=== PATIENT | female | born 1940 | race Caucasian/White ===

== ENCOUNTER → 2016-06-19 | Outpatient (CLI) | payer OTHER, BC ==
[~2016-06-19] MED LIST: ADULT LOW DOSE81 MG PO; APAP500 PO; CALCIUM AND MA1 EACH PO; CLARITIN10 MG PO; ECHINACEA500 MG PO; FISH OIL 1,0001 EAC5 PO; GLUCOSAMINE &1 EACH PO; LUTEIN20 MG PO; NORCO 5-325 TA1 EACH PO; QVAR HFA 440 MCG/UN1 INH; TRAMADOL 50 MG50 MG PO; TYLENOL ALLERG PO; VENTOLIN HFA 1818 GM INH; VICODIN; VICODIN 5-5001 EACH PO; VITAMIN B-12500 MCG PO; VITAMIN C100 M1 PO; VITAMIN D-32000 UNIT PO; VITAMIN E 400I400 IU PO; VITAMIN E400 UNIT PO; VITAMINC500 PO; Vitamin B-6 PO; [UNRECOGNIZED DRUG - OTHER] PO; [UNRECOGNIZED DRUG - OTHER] PO
== END ==
LOC: RAD 15:36
DX: Z12.31 Encounter for screening mammogram for malignant neoplasm of breast (principal)

== ENCOUNTER → 2017-06-06 | Outpatient (CLI) | payer OTHER, BC ==
[~2017-06-06] VITALS: Ht 170.2 cm; Wt 86.2 kg
[~2017-06-06] MED LIST changes: +CELECOXIB200 MG PO; +HYDROCODON-ACE1 EAC5 PO; +KRILL OIL 1,001 EAC1 PO; +LIPITOR10 MG PO
--- NOTE | ~2017-06-06 | HPC ---
[facility] [place] [address] PAIN MANAGEMENT CONSULTATION Name: BRADLY GARIBAY [facility] [id number] Admission: 06/06/17 Attend Phys: Rico Gracia MD Discharge: Date of : 36 Report #: [id number] THIS REPORT FOR: //name// CC: Argenis Gracia DATE OF SERVICE: 06/06/2017 Followup visit for lumbar radiculopathy. HISTORY OF PRESENT ILLNESS: The patient returns to pain clinic, would like another epidural injection. Her last injection was performed in 01/10/2017. She reports several months of significant improvement in pain relief. Pain is mostly related to the L4-L5 distribution. We reviewed her MRIs. In addition to the epidural injection, she is provided with hydrocodone 10/325 1 tablet q. 6 hours for a total of 30 morphine milligram equivalents a day. She has found this to be helpful without side effect. She safeguards all medication. She is on regular dosing, has had no red flag behaviors. Urine drug analysis or buccal drug screening p.r.n. will be performed as needed. We talked about continuing on Celebrex I have agreed to renew that medication as well 1 tablet daily. PHYSICAL EXAMINATION: Pleasant, alert and oriented, without signs of overmedication. Blood pressure is 143/71, heart rate 75. She has tenderness across her low back. She has positive straight leg raising bilaterally. Pain score is 3 today. Gait is ambulatory without antalgic features. BMI is 29.8. IMPRESSION: Lumbar radiculopathy. PROCEDURE: Lumbar epidural injection under fluoroscopic guidance. DESCRIPTION OF PROCEDURE: She was taken to fluoroscopic suite, placed prone, skin prepped with ChloraPrep. Skin anesthetized over the L4-L5 interspace. A 20-gauge Tuohy epidural needle advanced in the epidural space with loss of resistance technique. There was no blood or CSF aspirated. 1 mL of Omnipaque was injected with good spread of dye observed into the epidural space. This was followed by 3 mL of 0.5% lidocaine mixed with 80 mg triamcinolone. She tolerated the procedure well and was observed for 45 minutes and discharged with a followup visit planned as needed. <ELECTRONICALLY SIGNED> By: Rico Gracia MD 07/31/17 1640 [id number] Rico Gracia MD /nt
[2017-06-06 10:43] VITALS: BP 143/74
== END | disposition home or self-care (01) ==
LOC: PAIN 07:08
DX: M54.16 Radiculopathy, lumbar region (principal); G89.29 Other chronic pain; Z88.0 Allergy status to penicillin; Z79.891 Long term (current) use of opiate analgesic; Z79.82 Long term (current) use of aspirin; Z98.890 Other specified postprocedural states

== ENCOUNTER → 2017-09-12 | Outpatient (CLI) | payer OTHER, BC ==
[~2017-09-12] VITALS: Ht 152.4 cm; Wt 87.3 kg
--- NOTE | ~2017-09-12 | HPC ---
[facility] [place] [address] PAIN MANAGEMENT CONSULTATION Name: BRADLY GARIBAY Room #: REG ALONSO Octavia.#: [id number] Admission: 09/12/17 Attend Phys: Rico Gracia MD Discharge: Date of : 38 Report #: [id number] THIS REPORT FOR: //name// CC: Argenis Gracia DATE OF SERVICE: 09/12/2017 Followup visit for lumbar radiculopathy. The patient returns to the pain clinic today for repeat injection. Her last injection was in June. She has significant ongoing pain following the L4-L5 distribution of the left leg. We have talked about additional options for treatment in the future. For the moment, no new x-rays will be performed. We will continue to provide injections as long she can see months of relief. She is not taking opioid medications and does continue to remain active in her exercise and activities of daily living hoping to keep pain at bay. She completed a functional score today of 51/70. She is affected by walking ability mostly and she scores her interference of pain with enjoyment of life at 10/10. She has also completed for us an opioid risk tool. I have agreed to continue providing her with hydrocodone 10/325 up to 3 times a day. This is a morphine milligram equivalency of 30 MME. She will also take Celebrex 1 tablet daily as tolerated for benefit. Physical examination shows the patient who is 5 feet 2 inches, 152 pounds with a BMI of 37.6. Weight loss strategies have been discussed. Her blood pressure is 142/83, heart rate 66 and respirations 16. Pain intensity is 8/10. She is not a fall risk. She is not under treatment for hypertension. Opioid contract was reviewed with her. Examination of the spine reveals tenderness across the low back. She has some pain with forward flexion and extension. Straight leg raising does reproduce some marked pain into the left L4-L5 distribution. The right leg straight leg raising is negative. Gait is antalgic. IMPRESSION: Lumbar radiculopathy. PROCEDURE: Lumbar epidural steroid injection under fluoroscopic guidance. PROCEDURE: She was taken to the fluoroscopic suite for the treatment. She was placed prone, skin prepped with ChloraPrep. Skin anesthetized under L4-L5 interspace. A 20-gauge Tuohy epidural needle was advanced first attempt into the epidural space with loss of resistance. There was no blood or CSF aspirated. 1 mL of Omnipaque injected. Good spread of dye observed followed by 3 mL of 0.5% lidocaine mixed with 80 mg of triamcinolone. She tolerated the [address] [address] PAIN MANAGEMENT CONSULTATION Name: BRADLY GARIBAY Room #: REG ALONSO Perez#: [id number] Admission: 09/12/17 Attend Phys: Rico Gracia MD Discharge: Date of : 38 Report #: [id number] procedure well and was observed for 45 minutes and discharged. Follow up as needed. By: 1730 [id number] Rico Gracia MD /maya
[2017-09-12 13:12] VITALS: BP 142/83
== END | disposition home or self-care (01) ==
LOC: PAIN 07:22
DX: M54.16 Radiculopathy, lumbar region (principal); G89.29 Other chronic pain; Z88.0 Allergy status to penicillin; Z79.82 Long term (current) use of aspirin; Z79.899 Other long term (current) drug therapy; Z79.891 Long term (current) use of opiate analgesic; Z98.890 Other specified postprocedural states

== ENCOUNTER → 2017-10-15 | Outpatient (CLI) | payer OTHER, BC | LOC: RAD 14:26 | DX: Z12.31 Encounter for screening mammogram for malignant neoplasm of breast (principal) ==

== ENCOUNTER → 2017-12-19 | Outpatient (CLI) | payer OTHER, BC ==
[~2017-12-19] VITALS: Ht 157.5 cm; Wt 87.1 kg
--- NOTE | ~2017-12-19 | HPC ---
[facility] [place] [address] PAIN MANAGEMENT CONSULTATION Name: BRADLY GARIBAY Room #: REG [facility]#: [id number] Admission: 12/19/17 Attend Phys: Rico Gracia MD Discharge: Date of : 38 Report #: [id number] THIS REPORT FOR: //name// CC: Argenis Sky MD [facility] physician/PCP Rico Gracia DATE OF SERVICE: 12/19/2017 DATE OF REGISTRATION: 12/19/2017 REASON FOR VISIT: Followup visit for lumbar radiculopathy. HISTORY OF PRESENT ILLNESS: The patient returns to the pain clinic today for repeat epidural injection. She has been under a very stressful period of time. Her good friend, Marilia has recently had a spinal intrathecal pump placed and suffered from a wound infection and had to have the whole thing removed. She has been very sick and the patient has been at her side. The patient's pain, however, is low back and radicular, it radiates down into her legs. It has been worse with all the stress of going back and forth to the hospital to visit her friend. The pain radiates down into her leg consistent with lumbar radiculopathy. Pain is primarily on the left. Her last epidural injection was not as helpful. I reviewed her old films and saw that that injection seemed to provide good spread, but it was a bit more off the midline. The previous injections showed dye spreading through the midline. For what it is worth, we will try to replace the needle more in the midline into the left paramedian where I hoped it would be more beneficial. I also provided with medication under terms of written opioid agreement. She uses hydrocodone 10/325 about 3 times a day. I renewed that for her. She will carefully safeguard the medication, is grateful for the benefit that it gives her. She is able to be much more active and functional when she is on pain medication than when she is off. No side effects are noted. PHYSICAL EXAMINATION: VITAL SIGNS: She is 5 feet 2 inches, 150 pounds, BMI is 36.8. Blood pressure is 128/60, heart rate 77. MUSCULOSKELETAL: She moves from sitting to standing position with an antalgic features. Examination of the left knee reveals no swelling, tenderness, or inflammation. She has a small tenderness in the popliteal fossa would be consistent with a Chavez cyst. Straight leg raising is positive bilaterally, worse on the left than the right. [address] [address] PAIN MANAGEMENT CONSULTATION Name: BRADLY GARIBAY [facility] #: [facility] [id number] Admission: 12/19/17 Attend Phys: Rico Gracia MD Discharge: Date of : 38 Report #: [id number] IMPRESSION: Left lumbar radiculopathy. RECOMMENDATIONS: Epidural steroid injection under fluoroscopic guidance. PROCEDURE: She was taken to the fluoroscopic suite, she was placed prone, skin was prepped with ChloraPrep, skin was anesthetized over the L4-L5 interspace. A 20-gauge Tuohy epidural needle was advanced into the epidural space with loss of resistance technique. There was no blood nor CSF aspirated. 1 mL of Omnipaque was injected. Good spread of dye observed into the epidural space. This was then followed by 3 mL of 0.5% lidocaine mixed with 80 mg of triamcinolone. She tolerated the procedure well and was observed for 45 minutes and discharged. Followup visit planned as needed. By: [id number] Rico Gracia MD /nt
[2017-12-19 13:22] VITALS: BP 128/60
== END | disposition home or self-care (01) ==
LOC: PAIN 06:14
DX: M54.16 Radiculopathy, lumbar region (principal); G89.29 Other chronic pain; Z88.0 Allergy status to penicillin; Z79.82 Long term (current) use of aspirin; Z79.899 Other long term (current) drug therapy

== ENCOUNTER → 2018-04-10 | Outpatient (CLI) | payer OTHER, BC ==
[~2018-04-10] VITALS: Ht 154.9 cm; Wt 86.1 kg
--- NOTE | ~2018-04-10 | HPC ---
[facility] [place] [address] PAIN MANAGEMENT CONSULTATION Name: BRADLY GARIBAY [facility] [id number] Admission: 04/10/18 Attend Phys: Rico Gracia MD Discharge: Date of : 38 Report #: [id number] THIS REPORT FOR: //name// CC: [facility] physician/PCP Rico Gracia DATE OF SERVICE: 04/10/2018 CHIEF COMPLAINT: Followup visit for low back pain with radiculopathy. HISTORY OF PRESENT ILLNESS: The patient is here today requesting an epidural injection. She had over 3 months pain relief with her last injection performed on 12/19/2017. She would like another injection. It has been almost 4 months. She also receives medication under terms of written agreement. Hydrocodone 10/325 was provided for her 3 times a day for MME of 30. She is grateful for the pain relief that it provides and the improvement of her day-to-day activities that result as a reduction in pain. She has no significant side effects, not even constipation. She safeguards her medication carefully under terms of our agreement. We have talked about the importance of following the CDC guidelines. She will do so. She is not a fall risk and has not fallen. She has taken no blood thinning medication. She is not hypertensive. She scores her pain as a 6-7/10. Her BMI is 35.9. Weight loss has been recommended. She does have osteoarthritis involving knees, shoulders, wrists and ankles. Her knees most particularly are bothersome and this is improved oftentimes after her epidural injection, probably related to steroid use. She does not smoke. Drinks alcohol on a daily basis in a social setting with partner. PHYSICAL EXAMINATION: Pleasant female. She is 5 feet, 250 pounds, BMI 35. She moves from sitting to standing position, walks with antalgic features. Pain with forward flexion, extension, and bilateral straight leg raising discomfort. Pain is slightly worse on the right than the left. IMPRESSION: Low back pain with radiculopathy. PROCEDURE: 1. Epidural steroid injection. 2. Renewal of hydrocodone , #90 tablets per month with release date prescriptions for 4 and 8 weeks. PROCEDURE: She was taken to fluoroscopic suite, placed prone, skin prepped with ChloraPrep. Skin anesthetized over L4-L5. A 20-gauge Tuohy epidural needle advanced in the epidural space with loss of resistance technique. There was no [address] [address] PAIN MANAGEMENT CONSULTATION Name: BRADLY GARIBAY [facility] [id number] Admission: 04/10/18 Attend Phys: Rico Gracia MD Discharge: Date of : 38 Report #: [id number] blood or CSF aspirated. 1 mL of Omnipaque was injected. Good spread of dye observed in the epidural space followed by 3 mL of 0.5% lidocaine mixed with 80 mg of triamcinolone. She tolerated the procedure well and was observed for 45 minutes and discharged. Follow up as needed for repeat injections and medication in 3 months. By: 1613 2310 Rico Gracia MD /nt
[2018-04-10 14:19] VITALS: BP 144/66
== END | disposition home or self-care (01) ==
LOC: PAIN 06:32
DX: M54.16 Radiculopathy, lumbar region (principal); G89.29 Other chronic pain; M19.90 Unspecified osteoarthritis, unspecified site; Z79.891 Long term (current) use of opiate analgesic; Z98.890 Other specified postprocedural states; Z79.82 Long term (current) use of aspirin; Z88.0 Allergy status to penicillin; Z79.899 Other long term (current) drug therapy

== ENCOUNTER → 2018-12-18 | Outpatient (CLI) | payer OTHER, BC ==
[~2018-12-18] VITALS: Ht 152.4 cm; Wt 88.0 kg
--- NOTE | ~2018-12-18 | HPC ---
[facility] [place] [address] PAIN MANAGEMENT CONSULTATION Name: BRADLY GARIBAY Room #: REG [facility].#: [id number] Admission: 12/18/18 ������������������ Attend Phys: Rico Gracia MD Discharge: ������������������ Date of : 38 Report #: [id number] THIS REPORT FOR: //name// CC: Argenis Gracia DATE OF SERVICE: 12/18/2018 The patient returns to the pain clinic today for a lumbar epidural injection. These have provided good relief for her when her radiculopathy flares. Today, she is complaining of pain in her low back radiating into her left leg. She also has some right buttock pain and right foot pain. Pain has been more severe over the last few weeks. She also has a second pain in between her shoulder blades that had developed after a coughing spell. It has actually been improving over the last day or so, so with this acute pain, I have told her to watch and monitor. If it gets worse, we will consider some imaging. Compression fractures can occur in this area, but her exam was negative, so I do not believe that she has an actionable compression fracture at this time. She scores her overall pain as a 4/10. PQRS: 1. Positive for osteoarthritis involving knees, shoulders, wrists and ankles. BMI 37.9. 2. She recognizes that increased weight will affect mobility and pain. 3. Blood pressure 141/75, heart rate 76, respirations 16, O2 sat 96%. 4. Pain intensity 4/10. 5. She is not a fall risk. 6. She is on no blood thinner. 7. She is on medication for hypertension. All medications reviewed and reconciled. 8. She is on an opioid agreement signed in 2017. I provided with medications under terms of that agreement. She is grateful for the pain relief and improvement of daily function. She denies side effects. I will renew her hydrocodone 10/325 one tablet every 8 hours. 9. Risk assessment tool completion scores 0. She is at low risk for addiction. 10. She denies use of tobacco, drinks alcohol socially. IMPRESSION: Low back pain with radiculopathy. PLAN: 1. Renewed hydrocodone for treatment of diffuse osteoarthritis and aches and pains. She will safeguard her medication. [address] [address] PAIN MANAGEMENT CONSULTATION Name: BRADLY GARIBAY Sawyer Room #: REG [facility].#: [id number] Admission: 12/18/18 ������������������ Attend Phys: Rico Gracia MD Discharge: ������������������ Date of : 38 Report #: [id number] 2. Epidural steroid injection under fluoroscopic guidance. DESCRIPTION OF PROCEDURE: She was taken to fluoroscopic suite, placed prone, skin prepped with ChloraPrep. Skin anesthetized over the L4-L5 interspace. A 20-gauge Tuohy epidural needle was advanced first attempt in the epidural space with loss of resistance technique. No blood or CSF was aspirated. A 1 mL of Omnipaque was injected. Good spread of dye observed into the epidural space followed by 3 mL of 0.5% lidocaine mixed with 80 mg triamcinolone. She tolerated the procedure well and was observed for 45 minutes and discharged. Followup visit as needed. ��������������������������������������������� ���������������������������������������� By: ��������������������������������������������� 1844 [id number] Rico Gracia MD /nt
[2018-12-18 12:51] VITALS: BP 141/75
--- NOTE | 2018-12-18 12:53 | NUR ---
Pain Clinic Assessment: 1. History of Osteoarthritis: KNEES SHOULDERS WRISTS ANKLES History of Rheumatoid Arthritis: Not Applicable 2. Height: 5 ft. 0 in. 152.4 cm. Weight: 194.0 lb. oz. 87.998 kg. Patient's BMI: 37.9 3. Vital Signs: BP: 141/75 Pulse: 76 Resp: 16 Temp: 02 Sat: 96 ECG Mon: 4. Pain Intensity: 4 5. Fall Risk: Dizziness: N Needs help standing or walking: N Fallen in the last 3 months: N Fall risk comments: 6. Patient on Blood Thinner: None 7. History of Hypertension: Y 8. Opioid Therapy greater than 6 weeks: Y Opiate Contract Signed: 01/10/17 9. Risk Assessment Tool Provided: LOW RISK 0 10. Functional Assessment Tool: 11. Recreational Drug Use: Never Drug Type: Tobacco Use: Never Smoker Tobacco Type: Amount or Packs/day: How Many Years: Alcohol Use: Yes Frequency: Quant:
== END | disposition home or self-care (01) ==
LOC: PAIN 12:22 → EDSTATUS 12:37
DX: M54.16 Radiculopathy, lumbar region (principal); G89.29 Other chronic pain; I10 Essential (primary) hypertension; M19.90 Unspecified osteoarthritis, unspecified site; Z79.899 Other long term (current) drug therapy; Z79.891 Long term (current) use of opiate analgesic; Z98.890 Other specified postprocedural states; Z88.0 Allergy status to penicillin

== ENCOUNTER → 2019-03-09 | Outpatient (CLI) | payer OTHER, BC | LOC: BC 12:14 | DX: Z12.31 Encounter for screening mammogram for malignant neoplasm of breast (principal) ==

== ENCOUNTER → 2019-05-18 | Outpatient (CLI) | payer OTHER, BC ==
[~2019-05-18] VITALS: Ht 152.4 cm; Wt 87.7 kg
[2019-05-18 13:56] VITALS: BP 145/71
--- NOTE | 2019-05-18 14:19 | NUR ---
Pain Clinic Assessment: 1. History of Osteoarthritis: KNEES SHOULDERS WRISTS ANKLES History of Rheumatoid Arthritis: Not Applicable 2. Height: 5 ft. 0 in. 152.4 cm. Weight: 193.4 lb. oz. 87.726 kg. Patient's BMI: 37.8 3. Vital Signs: BP: 145/71 Pulse: 75 Resp: 16 Temp: 02 Sat: 100 ECG Mon: 4. Pain Intensity: 5 5. Fall Risk: Dizziness: N Needs help standing or walking: N Fallen in the last 3 months: N Fall risk comments: 6. Patient on Blood Thinner: None 7. History of Hypertension: Y 8. Opioid Therapy greater than 6 weeks: Y Opiate Contract Signed: 01/10/17 9. Risk Assessment Tool Provided: LOW RISK 0 10. Functional Assessment Tool: 11. Recreational Drug Use: Never Drug Type: Tobacco Use: Never Smoker Tobacco Type: Amount or Packs/day: How Many Years: Alcohol Use: Yes Frequency: Weekly Quant: 2/week
--- NOTE | 2019-05-19 08:21 | HPC ---
[facility] [address] [place] [address] PAIN MANAGEMENT CONSULTATION Name: BRADLY GARIBAY [facility] [id number] Admission: 05/18/19 Attend Phys: Patsy Granados Discharge: Date of : 38 Report #: [id number] THIS REPORT FOR: //name// CC: Patsy Gracia MD DATE OF SERVICE: 05/18/2019 CHIEF COMPLAINT: Low back pain with radiculopathy. HISTORY OF PRESENT ILLNESS: This is a very pleasant 78-year-old female who returns to the pain clinic today for refill of her medications. She reports that the epidural steroid injection that Dr. Rico Gracia gave her in December has been very beneficial at least relieving 85% of her back pain, it is slowly starting to return, especially in her knees, rating her pain score today at 5/10. It is a burning, aching, stinging feeling, worse when she is active with walking. She feels that her medications which she takes a half to one tablet 2-3 times a day have been very beneficial as well as the injection. Today, she would like a refill of her hydrocodone why she is here today with her partner. The patient denies any problems with constipation or daytime sleepiness from these medications. ALLERGIES: PENICILLIN. CURRENT LIST OF MEDICATIONS: 1. Hydrocodone 10/325 p.r.n. 2. Vitamin C. 3. Lipitor. 4. Krill oil. 5. Claritin. 6. Vitamin B12. 7. Lutein. PQRS: 1. The patient has a history of osteoarthritis in her knees, shoulders, wrists and ankles. Denies any rheumatoid arthritis. 2. Height is 5 feet, weight is 193, BMI is 37. 3. Vital signs 145/71, pulse is 75, respirations 16, oxygen sat is 100. 4. Pain score is 5/10. 5. She denies any dizziness, does not need help walking or standing, has not fallen in the last 3 months. 6. The patient is not on any blood thinners, but does take medicine for hypertension. 7. Opioid agreement is on the chart. She has taken opioids greater than 6 [facility] [address] [place] [address] PAIN MANAGEMENT CONSULTATION Name: BRADLY GARIBAY Room #: REG [facility]#: [id number] Admission: 05/18/19 Attend Phys: Patsy Granados Discharge: Date of : 38 Report #: [id number] weeks. 8. Risk assessment tool is low. Functional assessment is 44/70. 9. Recreational drug use, she denies. She is not a smoker and does drink about 2 alcoholic beverages a week. According to the prescription monitoring system, the patient is filling appropriately 3 months of medications since Yamini have lasted her 6 months, so she does take these minimally, taking 5 to 20 morphine milliequivalents per day. IMPRESSION: 1. Low back pain with radiculopathy. 2. Osteoarthritis. 3. Complex medical management under terms of written opioid agreement. We reviewed the fact that opiate medications are being used to provide analgesia adequate to support activities of daily living, not attempting to achieve a specific pain score on the 0-10 Visual Analog Scale. The current opiate medications are providing sufficient analgesia to allow the patient to participate in activities of daily living. The patient is not exhibiting any aberrant behavior suggestive of drug diversion. The patient is not having any adverse reactions to medications. The patient is not suffering from daytime somnolence or mental acuity changes. The patient is managing opiate-induced constipation with appropriate [id number] agents and dietary considerations. The patient was counseled on concern for caution with operating a motor vehicle while using opiate medications. A physical exam was performed and the patient's functional status was evaluated. All patients with back pain were advised against the bed rest greater than 4 days and were advised to return to normal activities. Pain score assessment was noted and the treatment plan was reviewed with the patient. All current medications, both prescribed and OTC were reviewed and reconciled on the electronic medical record. Tobacco screening was accomplished and smoking cessation was advised when indicated. BMI was noted and diet/exercise modification was recommended for all patients following outside normal parameters. I reviewed with the patient today their responsibilities to safeguard prescription medications, reviewed their responsibility to utilize medications only as prescribed by the physician. They are to seek and receive pain medications only from 1 physician group ( [facility]). They are to use 1 pharmacy and keep the clinic informed if they change pharmacies. Their responsibilities include making followup visits in a timely fashion and to avoid abrupt discontinuation of medication usage. Their responsibilities further include bringing their medications (bottles from the pharmacy with residual pills) to the visit for possible confirmation of pill counts and the patient understands it is their responsibility to submit to random drug screens to [address] [address] PAIN MANAGEMENT CONSULTATION Name: BRADLY GARIBAY Room #: REG ALONSO Perez#: [id number] Admission: 05/18/19 Attend Phys: Patsy Granados Discharge: Date of : 38 Report #: [id number] ensure both that the medications prescribed are present, and that no other controlled substances are present. All prescriptions provided today were generated electronically. PLAN: 1. We will renew her hydrocodone for her diffuse osteoarthritis in her lumbar radiculopathy. She feels these are very beneficial taking them sparingly, able to tolerate a half to one tablet several times a day. She does safeguard these medications and does not have any problems with constipation or daytime somnolence as a side effect of these medications. We will e-sign these prescriptions to her pharmacy in [place] for hydrocodone 10/325, #90 for 3 months. 2. The patient is seen today in collaboration with Dr. Rico Gracia who did see the patient as well. <ELECTRONICALLY SIGNED> By: Patsy Granados 05/19/19 0821 1444 0014 Patsy Granados /nt
== END ==
LOC: PAIN 13:21
DX: M54.5 Low back pain (principal); M54.16 Radiculopathy, lumbar region; M19.90 Unspecified osteoarthritis, unspecified site; Z79.891 Long term (current) use of opiate analgesic